=== PATIENT | female | born 1960 | race Caucasian/White ===

== ENCOUNTER 2023-12-31 11:30 | Inpatient (IN) ==
[2023-12-22 15:09] LABS: Basophils # (Auto) 0.03 K/mcL (0.00-0.30); Basophils % (Auto) 0.5 % (0.0-2.0); Eosinophils % (Auto) 1.6 % (0.0-7.0); Hematocrit 42.7 % (34.1-44.9); Hemoglobin 14.2 g/dL (11.2-15.7); Lymphocytes # (Auto) 2.32 K/mcL (1.50-4.80); Lymphocytes % (Auto) 38.2 % (15.5-49.0); Mean Cell Volume 90.9 fL (80.0-100.0); Mean Corpuscular HGB Conc 33.3 g/dL (31.0-36.0); Mean Platelet Volume 9.5 fL (8.8-12.5); Monocytes # (Auto) 0.51 K/mcL (0.10-0.90); Monocytes % (Auto) 8.4 % (1.0-12.0); Platelet Count 216 K/mcL (140-440); Red Cell Distribution Width 12.8 % (11.5-14.5); WBC 6.1 K/mcL (4.5-11.0)
[2023-12-22 15:32] LABS: ALT/SGPT 13 U/L (<40); AST/SGOT 22 U/L (<32); Albumin 4.3 gm/dL (3.2-5.2); Albumin/Globulin Ratio 1.4 (1.0-2.3); Alkaline Phosphatase 124 U/L (39-117); Bilirubin,Total 0.3 mg/dL (0.1-1.0); Blood Urea Nitrogen 16 mg/dL (8-23); Calcium 9.3 mg/dL (8.6-10.4); Carbon Dioxide 25 mmol/L (22-30); Chloride 105 mmol/L (96-108); Globulin 3.1 gm/dL (2.2-3.7); Glomerular Filtration Rate 53; Glucose 100 mg/dL (70-105)
[2023-12-22 15:41] LABS: Appearance,Urine Clear (Clear); Bilirubin,Urine Negative (Negative); Color,Urine Yellow; Culture Indicated,Urine No; Glucose,Urine (UA) Negative (Negative); Ketones,Urine Negative (Negative); Leukocyte Esterase,Urine Negative /uL (Negative); Nitrate,Urine Negative (Negative); PH,Urine 5.5 (5.0-9.0); Protein,Urine Negative (Negative); Urine Blood Negative ery/mcL (Negative); Urobilinogen,Urine Normal
[2023-12-22 17:52] LABS: Estimated Average Glucose(eAG) 111 mg/dL; Hemoglobin A1C 5.5 % Hgb (4.0-6.0)
[2023-12-22 18:22] LABS: INR 0.9 (0.9-1.1); Prothrombin Time 13.1 sec (11.9-14.5)
[2023-12-31] MEDS ORDERED: IPRATROPIUM/ALBUTEROL 3 ML AMPUL.NEB NEB PRN ×2 (12:00→14:45)
[2023-12-31] MEDS ORDERED: SCOPOLAMINE 1 PATCH PATCH TOPICAL PRN (12:00)
[2023-12-31] MEDS: ACETAMINOPHEN 500 MG TABLET PO SCH (12:55)
[2023-12-31] MEDS: CELECOXIB 200 MG CAPSULE PO SCH (12:56)
[2023-12-31] MEDS: oxyCODONE 10 MG TAB.ER.12H PO SCH (12:56)
[2023-12-31] MEDS: PREGABALIN 25 MG CAPSULE PO SCH (12:56)
[2023-12-31] MEDS ORDERED: KETAMINE 50 MG/ML Syringe IV ONE (13:42)
[2023-12-31] MEDS ORDERED: PROPOFOL 200 MG/20 ML VIAL IV ONE (13:42)
[2023-12-31] MEDS ORDERED: LIDOCAINE 2% PF 5 ML VIAL ONE (13:42)
[2023-12-31] MEDS ORDERED: ONDANSETRON 4 MG/2 ML VIAL ONE (13:42)
[2023-12-31] MEDS ORDERED: DEXAMETHASONE 10 MG/ML VIAL ONE (13:42)
[2023-12-31] MEDS ORDERED: ROPIVACAINE HCL/PF 30 ML VIAL IJ ONE (13:42)
[2023-12-31] MEDS ORDERED: MAGNESIUM SULFATE 2 GM/50 ML BAG IV ONE (13:42)
[2023-12-31] MEDS ORDERED: TRANEXAMIC ACID 1,000 MG/10 ML VIAL ONE (13:42)
[2023-12-31] MEDS: ceFAZolin 2 GM in DEXTROSE 5% IN WATER 50 ML IV SCH (14:16)
[2023-12-31] MEDS ORDERED: HYDROmorphone 1 MG/ML SYRINGE ONE (14:37)
[2023-12-31] MEDS ORDERED: MEPERIDINE 25 MG/ML VIAL IV PRN (14:45)
[2023-12-31] MEDS ORDERED: KETOROLAC 30 MG/ML VIAL IV PRN (14:45)
[2023-12-31] MEDS ORDERED: LACTATED RINGERS 250 ML IV PRN (14:45)
[2023-12-31] MEDS ORDERED: PROMETHAZINE 25 MG/ML VIAL IV PRN (14:45)
[2023-12-31] MEDS ORDERED: fentaNYL 100 MCG/2 ML VIAL IV PRN (14:45)
[2023-12-31] MEDS ORDERED: ONDANSETRON 4 MG/2 ML VIAL IV PRN (14:45)
[2023-12-31] MEDS: 0.9 % SODIUM CHLORIDE 9 ML, KETOROLAC 30 MG, ROPIVACAINE HCL/PF 49.5 ML, EPINEPHrine 0.... IJ SCH (14:50)
[2023-12-31] MEDS ORDERED: TEMAZEPAM 15 MG CAPSULE PO PRN (15:07)
[2023-12-31] MEDS ORDERED: POLYETHYLENE GLYCOL 3350 17 GM PACKET PO PRN (15:07)
[2023-12-31] MEDS ORDERED: BISACODYL 10 MG SUPP.RECT PR PRN (15:07)
[2023-12-31] MEDS ORDERED: ACETAMINOPHEN 325 MG TABLET PO PRN (15:07)
[2023-12-31] MEDS ORDERED: BENZOCAINE/MENTHOL 1 LOZENGE PO PRN (15:07)
[2023-12-31] MEDS ORDERED: FLEETS ADULT 1 DOSE ENEMA PR PRN (15:07)
[2023-12-31] MEDS ORDERED: MAGNESIUM HYDROXIDE 30 ML ORAL.SUSP PO PRN (15:07)
[2023-12-31] MEDS ORDERED: HYDROmorphone 1 MG/ML SYRINGE IV PRN (15:07)
[2023-12-31] MEDS: TRANEXAMIC ACID 1,000 MG/10 ML VIAL IV ONE (15:39)
[2023-12-31] MEDS: METHOCARBAMOL 1,000 MG/10 ML VIAL IV PRN (15:40)
[2023-12-31] MEDS: diphenhydrAMINE 50 MG/ML VIAL IV PRN (16:18)
[2023-12-31] MEDS: ONDANSETRON 4 MG/2 ML VIAL IV PRN (16:19)
[2023-12-31] MEDS: 0.45 % SODIUM CHLORIDE 1,000 ML IV SCH (16:19)
[2023-12-31] MEDS: KETOROLAC 15 MG/ML VIAL IV SCH (17:13)
[2023-12-31] MEDS: LACTATED RINGERS 1,000 ML IV SCH (17:15)
[2023-12-31] MEDS: PREGABALIN 75 MG CAPSULE PO SCH (18:34)
[2023-12-31] MEDS: DOCUSATE SODIUM 100 MG CAPSULE PO SCH (21:23)
[2023-12-31] MEDS: SENNOSIDES 1 TABLET PO SCH (21:23)
[2023-12-31] MEDS: ASPIRIN 81 MG TAB.CHEW PO SCH (21:23)
[2023-12-31] MEDS: ceFAZolin 1 GM VIAL IV SCH (23:10)
[2023-12-31] MEDS: 0.9 % SODIUM CHLORIDE 10 ML SYRINGE IV SCH (23:11)
[2024-01-01] MEDS: HYDROcodone/APAP 10/325MG TABLET PO PRN (09:21)
== END 2024-01-01 11:10 | disposition home or self-care (01) | DRG 489 ==
LOC: MEDSUR 11:58
PROVIDERS: ADMIT Orthopaedic Surgery; ATTEND Orthopaedic Surgery